=== PATIENT | female | born 2000 | race Caucasian/White ===

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

== ENCOUNTER 2024-01-07 10:05 | Emergency (ER) | payer OTHER ==
[2024-01-07 10:20] VITALS: TEMP 99
--- NOTE | 2024-01-07 11:16 | ERPHSYRPT ---
- History of Present Illness Time Seen by Provider: 01/07/24 11:00 Source: patient Exam Limitations: no limitations Patient Subjective Stated Complaint: pt had a hysterscopy done yesterday and continues to have large amounts of blood with large clots Triage Nursing Assessment: Pt was brought to the ER by her mother, wesley sommer, denies pain, going thru a pad every 45min to an hour and that she has been bleeding like this since she got home yesterday, pt has photos of large amounts of blood and large clots, pt called surgeon and they said that they didn't need to see her, pt does state that she has a headache, pulses normal, skin n/w/d, no difficulties with breathing Physician History: 23-year-old female presents to our ED with vaginal bleeding. Patient had a hysteroscopy yesterday at [facility] by Dr. Gonzales. Patient states that she has been passing large clots since. Dr. Gonzales ordered a prescription for TXA. However in light of the amount of bleeding patient became concerned and came to our ED instead. Will administer TXA in our ED. No other active issues. Patient has no significant past medical history. She currently denies pain. No associated nausea vomiting. No diarrhea no rash. Patient has no blood dyscrasias that we know of. Patient's last blood work was done some years ago. Mother at bedside. They voiced no other complaints or concerns at this time. Portions of this note were created with voice recognition technology. There may be grammatical, spelling, punctuation or sound alike errors Timing/Duration: today Severity: moderate Modifying Factors: Improves With: nothing Associated Symptoms: denies symptoms Allergies/Adverse Reactions: venom-honey bee [bee venom (honey bee)] Allergy (Verified 01/07/24 10:20) Home Medications: No Reportable Medications [No Reported Medications] 01/07/24 [History] Hx Tetanus, Diphtheria Vaccination/Date Given: No Hx Influenza Vaccination/Date Given: Yes Hx Pneumococcal Vaccination/Date Given: No Travel Risk - International Travel Have you traveled outside of the country in past 3 weeks: No - Emerging Infectious Disease Are you exhibiting symptoms associated with any current EIDs: No - Review of Systems Constitutional: No Symptoms, No Fever, No Chills Eyes: No Symptoms Ears, Nose, & Throat: No Symptoms Respiratory: No Symptoms, No Cough, No Dyspnea Cardiac: No Symptoms, No Chest Pain, No Edema, No Syncope Abdominal/Gastrointestinal: No Symptoms, No Abdominal Pain, No Nausea, No Vomiting, No Diarrhea Genitourinary Symptoms: No Symptoms, No Dysuria Musculoskeletal: No Symptoms, No Back Pain, No Neck Pain Skin: No Symptoms, No Rash Neurological: No Dizziness, No Focal Weakness, No Sensory Changes Psychological: No Symptoms Endocrine: No Symptoms Hematologic/Lymphatic: No Symptoms Immunological/Allergic: No Symptoms All Other Systems: Reviewed and Negative - Past Medical History Pertinent Past Medical History: No Neurological History: No Pertinent History ENT History: No Pertinent History Cardiac History: No Pertinent History Respiratory History: No Pertinent History Endocrine Medical History: No Pertinent History Musculoskeletal History: No Pertinent History GI Medical History: No Pertinent History History: No Pertinent History Psycho-Social History: No Pertinent History Female Reproductive Disorders: No Pertinent History Other Medical History: tonsils and tubes in ears - Past Surgical History Past Surgical History: Yes Neuro Surgical History: No Pertinent History Cardiac: No Pertinent History Respiratory: No Pertinent History Gastrointestinal: No Pertinent History Genitourinary: No Pertinent History Musculoskeletal: No Pertinent History Female Surgical History: Other Other Surgical History: tubes in ears, hysterscopy - Female History Hx Last Menstrual Period: MIDDLE OF NOVEMBER 2013 Hx Now: No (preg test yesterday) - Social History Smoking Status: Never smoker Exposure to second hand smoke: No Drug Use: none Patient Lives Alone: No - Social Determinants of Health Will the patient participate in the screening: Yes Do you worry about a steady place to live?: No Do you have any problems with any of the following?: No known problems In the past 12 months,have you had to go without utilities?: No Transportation Issues: No Has anyone in your support network made you feel unsafe?: No Have you or anyone in your house had to go without enough: No - Nursing Vital Signs Nursing Vital Signs: Initial Vital Signs Temperature 99.0 F 01/07/24 10:13 Pulse Rate 94 H 01/07/24 10:13 Blood Pressure 118/77 01/07/24 10:13 O2 Sat by Pulse Oximetry 100 01/07/24 10:13 Pain Scale Pain Intensity 0 - Physical Exam General Appearance: no apparent distress, alert Eye Exam: PERRL/EOMI, eyes nml inspection Ears, Nose, Throat Exam: normal ENT inspection, TMs normal, pharynx normal, moist mucous membranes Neck Exam: normal inspection, non-tender, supple, full range of motion Respiratory Exam: normal breath sounds, lungs clear, airway intact, No respiratory distress Cardiovascular Exam: regular rate/rhythm, normal heart sounds, normal peripheral pulses Gastrointestinal/Abdomen Exam: soft, normal bowel sounds, No tenderness, No mass Back Exam: normal inspection, normal range of motion, No CVA tenderness, No vertebral tenderness Extremity Exam: normal inspection, normal range of motion, pelvis stable Neurologic Exam: alert, oriented x 3, cooperative, normal mood/affect, sensation nml, No motor deficits Skin Exam: normal color, warm, dry, No rash Lymphatic Exam: No adenopathy SpO2 Interpretation: normal SpO2: 100 O2 Delivery: Room Air - Course Nursing assessment & vital signs reviewed: Yes Ordered Tests: Active Orders 24 hr Category Date Time Status Medical Fee Clerk STAT Care 01/07/24 11:09 Active IV Insertion STAT Care 01/07/24 11:09 Active Pulse Oximetry (ED) STAT Care 01/07/24 11:09 Active CBC W DIFF Stat Lab 01/07/24 11:35 Completed CMP Stat Lab 01/07/24 11:35 Completed PROTIME WITH INR Stat Lab 01/07/24 11:35 Completed PTT Stat Lab 01/07/24 11:35 Completed Medication Summary Generic Name Dose Route Start Last Admin Trade Name Freq PRN Reason Stop Dose Admin Sodium Chloride 1,000 mls @ 100 mls/hr 01/07/24 11:15 01/07/24 11:45 Sodium Chloride 0.9% 1000 Ml IV 02/06/24 11:14 100 mls/hr .Q10H VITOR Administration Discontinued Medications Generic Name Dose Route Start Last Admin Trade Name Freq PRN Reason Stop Dose Admin TRANEXAMIC ACID IN NACL,ISO-OS 1,000 mg in 100 mls @ 600 mls/hr 01/07/24 11:10 01/07/24 12:06 Tranexamic 1,000 Mg/100ml-Nacl IV 01/07/24 11:19 Infused ONCE ONE Infusion TRANEXAMIC ACID IN NACL,ISO-OS Confirm 01/07/24 11:37 Tranexamic 1,000 Mg/100ml-Nacl Administered 01/07/24 11:38 Dose 1,000 mg in 100 mls @ ud [facility] Lab/Rad Data: Laboratory Result Diagrams 01/07/24 11:35 01/07/24 11:35 Laboratory Results 01/07/24 01/07/24 01/07/24 Range/Units 11:35 11:35 11:35 WBC 10.9 H (3.98-10.04) x10^3/uL RBC 4.04 (3.93-5.22) x10^6/uL Hgb 12.6 (11.2-15.7) g/dL Hct 37.7 (34.1-44.9) % MCV 93.3 (79.4-94.8) fL MCH 31.2 (25.6-32.2) pg MCHC 33.4 (32.2-35.5) g/dL RDW 12.5 (11.7-14.4) % Plt Count 169 L (182-369) x10^3/uL MPV 10.7 (9.4-12.3) fL Gran % 66.7 (34.0-71.1) % Immature Gran % (Auto) 0.5 H (0.001-0.429) % Nucleat RBC Rel Count 0.0 (0.00-0.2) % Eos # (Auto) 0.07 (0.04-0.36) x10^3/uL Immature Gran # (Auto) 0.05 H (0.001-0.031) x10^3u/L Absolute Lymphs (auto) 2.71 (1.18-3.74) x10^3/uL Absolute Monos (auto) 0.75 (0.24-0.86) x10^3/uL Absolute Nucleated RBC 0.00 (0.00-0.012) x10^3u/L Lymphocytes % 24.9 (19.3-51.7) % Monocytes % 6.9 (4.7-12.5) % Eosinophils % 0.6 L (0.7-5.8) % Basophils % 0.4 (0.1-1.2) % Absolute Granulocytes 7.26 H (1.56-6.13) x10^3/uL Basophils # 0.04 (0.01-0.08) x10^3/uL PT 10.9 (9.4-12.5) SECONDS INR 1.00 (0.8-3.0) APTT 24.2 L (25.1-36.5) SECONDS Sodium 139 (135-145) mmol/L Potassium 3.7 (3.5-5.1) mmol/L Chloride 108 H (98-107) mmol/L Carbon Dioxide 23 (22-30) mmol/L Anion Gap 11.1 (5-15) MEQ/L BUN 11 (7-17) mg/dL Creatinine 0.46 L (0.52-1.04) mg/dL Estimated GFR 137.0 ML/MIN Glucose 97 (74-106) mg/dL Calcium 9.2 (8.4-10.2) mg/dL Total Bilirubin 0.70 (0.2-1.3) mg/dL AST 26 (14-36) U/L ALT 18 (0-35) U/L Alkaline Phosphatase 34 L (38-126) U/L Serum Total Protein 6.9 (6.3-8.2) g/dL Albumin 4.3 (3.5-5.0) g/dL - Progress Progress: improved Progress Note: 23-year-old female presents to our ED for evaluation of vaginal bleeding. Patient recently had a cervical polyp removed. Since then she has been bleeding. Patient's [employer] physician ordered TXA as a prescription. Patient came here due to bleeding. TXA was administered via IV instead. Patient observed vaginal bleeding significantly improved. No active bleeding at this time. Will discharge patient home. Patient will better rest for the next day. Patient to follow-up with her primary care provider within 48 hours for reevaluation. Vital stable. Laboratory workup essentially nonremarkable. Hem oglobin appears to be within normal limits. Portions of this note were created with voice recognition technology. There may be grammatical, spelling, punctuation or sound alike errors Complexity problem addressed is moderate acute complicated no critical care time complexity data reviewed and analyzed is moderate. Test ordered test reviewed results analyzed and correlated clinically with history and physical exam. Risk complication and or risk of morbidity/mortality patient management is low. Vital stable. Time spent to discharge patient is approximately 10 minutes. Plan of care established for shared decision making. No social determinants of health present impede follow-up. Portions of this note were created with voice recognition technology. There may be grammatical, spelling, punctuation or sound alike errors 01/07/24 13:40 Counseled pt/family regarding: lab results, diagnosis, need for follow-up - Departure Departure Disposition: Home Clinical Impression: Vaginal bleeding Condition: Stable Critical Care Time: No Referrals: DOCTOR,NO FAMILY [Primary Care Provider] - Follow up/PCP as directed DEN CONLEY DO [ACTIVE STAFF] - Follow up/PCP as directed Additional Instructions: Discharge/Care Plan MODE AGUIRRE was seen on 01/07/24 in the Emergency Room. The patient was counseled regarding Diagnosis,Lab results, Imaging studies, need for follow up and when to return to the Emergency Room. Prescriptions given: Discharge Note I have spoken with the patient and/or caregivers. I have explained the patient's condition, diagnosis and treatment plan based on the information available to me at this time. I have answered the patient's and/or caregiver's questions and addressed any concerns. The patient and/or caregivers have as good understanding of the patient's diagnosis, condition and treatment plan as can be expected at this point. The vital signs have been stable. The patient's condition is stable and appropriate for discharge from the emergency department. The patient will pursue further outpatient evaluation with the primary care physician or other designated or consulting physician as outlined in the discharge instructions. The patient and/or caregivers are agreeable to this plan of care and follow-up instructions have been explained in detail. The patient and/or caregivers have received these instruction. The patient/and or caregivers are aware that any significant change in condition or worsening of symptoms should prompt an immediate return to this or the closest emergency department or call 911.
[2024-01-07] MEDS ORDERED: TRANEXAMIC 1,000 MG/100ML-NACL 1,000 MG/100 ML PIGGYBACK IV ONE (11:37)
[2024-01-07] MEDS ORDERED: Sodium Chloride 0.9% 1000 ML 1,000 ML ONE (11:37)
[2024-01-07] MEDS: Sodium Chloride 0.9% 1000 ML 1,000 ML IV SCH (11:45)
[2024-01-07] MEDS: TRANEXAMIC 1,000 MG/100ML-NACL 1,000 MG/100 ML PIGGYBACK IV ONE (11:45)
[2024-01-07 11:54] LABS: Absolute Neutrophil Ct (ANC) 7.26 x10^3/uL (1.56-6.13); BASOPHIL % 0.4 % (0.1-1.2); Basophil (Absolute #) 0.04 x10^3/uL (0.01-0.08); Eosinophil % 0.6 % (0.7-5.8); Eosinophil (Absolute #) 0.07 x10^3/uL (0.04-0.36); Hematocrit 37.7 % (34.1-44.9); Hemoglobin 12.6 g/dL (11.2-15.7); IMMATURE GRAN # 0.05 x10^3u/L (0.001-0.031); IMMATURE GRAN % 0.5 % (0.001-0.429); Lymphocyte (Absolute #) 2.71 x10^3/uL (1.18-3.74); Lymphocytes % 24.9 % (19.3-51.7); Mean Cell Volume 93.3 fL (79.4-94.8); Mean Corpuscular Hemoglobin 31.2 pg (25.6-32.2); Mean Corpuscular Hgb Concent. 33.4 g/dL (32.2-35.5); Mean Platelet Volume 10.7 fL (9.4-12.3); Monocyte (Absolute #) 0.75 x10^3/uL (0.24-0.86); Monocytes % 6.9 % (4.7-12.5); Neutrophil % 66.7 % (34.0-71.1); Platelet Count 169 x10^3/uL (182-369); Red Blood Count 4.04 x10^6/uL (3.93-5.22); Red Cell Distribution Width 12.5 % (11.7-14.4); White Blood Count 10.9 x10^3/uL (3.98-10.04)
[2024-01-07 12:07] LABS: ALBUMIN 4.3 g/dL (3.5-5.0); ANION GAP 11.1 MEQ/L (5-15); BILIRUBIN,TOTAL 0.7 mg/dL (0.2-1.3); Calcium 9.2 mg/dL (8.4-10.2); Creatinine 1 0.46 mg/dL (0.52-1.04); Potassium 3.7 mmol/L (3.5-5.1); Total Protein 6.9 g/dL (6.3-8.2)
[2024-01-07 12:08] LABS: PROTIME 10.9 SECONDS (9.4-12.5); PTT 24.2 SECONDS (25.1-36.5)
[2024-01-07 13:09] VITALS: RESP 10; O2SAT 100
[2024-01-07 13:57] VITALS: BP 113/74; PULSE 78
[2024-01-07 14:58] LABS: Appearance VERY CLOUDY (CLEAR); Bilirubin COLOR INTERFERENCE (NEGATIVE); Ketones COLOR INTERFERENCE (NEGATIVE); Ph >=9.0 (5-6); Protein,Urine Dip >=300 (Negative); RBC LARGE Ery/ul (0-5); Specific Gravity <=1.005 (1.005-1.025)
[2024-01-07 14:59] LABS: ADD URINE CULTURE? YES (NO); Bacteria Moderate /HPF (None Seen); Glucose COLOR INTERFERENCE mg/dL (NEGATIVE); Nitrite COLOR INTERFERENCE (NEGATIVE); RBC >100 /HPF (0-5); Urobilinogen COLOR INTERFERENCE mg/dL (0-1); WBC 21-50 /HPF (0-5)
== END 2024-01-07 13:58 | disposition home or self-care (01) ==
LOC: ED 10:05
DX: N93.9 Abnormal uterine and vaginal bleeding, unspecified (principal)
CPT/HCPCS: 36000; 36415; 80053; 81015; 85025; 85610; 85730; 87086; 93041; 94760; 96365; 99284